=== PATIENT | female | born 1950 | race Caucasian/White ===

== ENCOUNTER 2019-05-06 20:33 | Emergency (ER) | payer MEDICARE ==
--- OUTSIDE RECORDS SUMMARY | 2019-05-06 20:39 | XMS REPORT | Continuity of Care Document ---
:1950 External Reference #:[id number] Author Name HORACIO Campbell Address [address] [place] [address], [address] [place] [address] Care Team Providers Name Role Phone Kalyn Partida M.D. - Obstetrics & Care Team Information Automatic Fabric Cutter [phone] Gynecology Problems Active Problems Provider Date Posterior rhinorrhea HORACIO Campbell Onset: 11/02/2018 Cough HORACIO Campbell Onset: 11/02/2018 Social History Type Date Description Comments Sex Unknown ETOH Use Rarely consumes alcohol Tobacco Use Start: Unknown Patient is a current smoker, smokes every 1/2 ppd day Smoking Status Reviewed: 04/25/19 Patient is a current smoker, smokes every 1/2 ppd day Allergies, Adverse Reactions, Alerts Description No Known Drug Allergies Medications Active Medications SIG Qnty Indications Ordering Provider Date Myrbetriq 1 by mouth every 30tabs N32.81 Lesley Montes, 04/25/2019 25mg Tablets ER day PIPING DESIGN SPECIALIST 24HR Fluticasone Propionate 2 sprays in each 16gm Taylor De La Torre, 07/16/2018 nostril every PIPING DESIGN SPECIALIST 50mcg/Act Suspension day Meloxicam 1 by mouth every 90tabs M54.2 Lesley Montes, 04/20/2017 15mg Tablets day PIPING DESIGN SPECIALIST Atorvastatin Calcium take 1 tablet by 90tabs E78.2 Paddy Alavrado, 2016 20mg mouth every day M.D. Tablets Ventolin HFA 2 puffs four 16gm Paddy Alvarado, 108(90Base) times a day as M.D. mcg/Act Aerosol needed Loratadine 1 by mouth every Unknown 10mg Tablets day History Medications Azithromycin 2 tabs by mouth on 6tabs R05 Paddy Gagnonlila, 12/17/2018 - 250mg day 1, then 1 tab M.D. 04/24/2019 Tablets by mouth day on days 2-5 Hydromet 5ml by mouth every 473ml R05 Paddy Alvarado, 12/17/2018 - 5-1.5mg/5ML 4 hours as needed M.D. 04/24/2019 Syrup for cough Hydromet 5 milliliters every 120units Lesley 11/02/2018 - 5-1.5mg/5ML 4 hours as needed HORACIO Montes 12/17/2018 Syrup cough #[id number] Benzonatate take 1 by mouth 30caps R05 Lesley 11/02/2018 - 200mg three times a day HORACIO Montes 11/12/2018 Capsules as needed for cough. Immunizations CPT Code Status Date Vaccine Lot # [id number] Given 05/22/2018 Prevnar 13, [facility] 5567-3490-09. 0[place]5 [place] [id number] Given 04/20/2018 Fluzone, High Dose 0.5mL 05302 Given 05/01/2017 Afluria, 0.5mL Flu Vaccine Vital Signs Date Vital Result Comment 04/25/2019 9:40am Weight 184.12 lb Height 66 inches 5'6" BP Systolic 140 mmHg BP Diastolic 80 mmHg Heart Rate 82 /min BMI (Body Mass Index) 29.7 kg/m2 Left Visual Acuity Distance 20/25 w/glasses Right Visual Acuity Distance 20/30 w/glasses Both Visual Acuity Distance 20/25 w/glasses 12/17/2018 3:59pm Weight 193.00 lb Height 66 inches 5'6" BP Systolic 126 mmHg BP Diastolic 80 mmHg Body Temperature 98.0 F Heart Rate 77 /min O2 % BldC Oximetry 97 % BMI (Body Mass Index) 31.1 kg/m2 Results Test Date Facility Test Result H/L Range Note Thy (TSH And Free 04/25/2019 [facility] TSH <pending> T4) [address] [place] [address] [phone] Free T4 <pending> Procedures Date Code Description Status 06/13/2015 394786679 Bone Mineral Density Test Completed Medical Devices Description No Information Available Encounters Type Date Location Provider Dx Diagnosis Office Visit 04/25/2019 Main Office Lesley Montes E78.2 Mixed hyperlipidemia 9:40a PIPING DESIGN SPECIALIST M54.2 Cervicalgia Z13.228 Encounter for screening for other metabolic disorders N32.81 Overactive bladder Z71.3 Dietary counseling and surveillance Office Visit 12/17/2018 4:15p Main Office Paddy Alvarado M.D. R05 Cough Z71.3 Dietary counseling and surveillance Office Visit 11/02/2018 2:00p Main Office Lesley Montes R09.[address] [facility] R05 Cough Assessments Date Code Description Provider 04/25/2019 E78.2 Mixed hyperlipidemia MANAD CampbellP 04/25/2019 M54.2 Cervicalgia Lesley Montes, PIPING DESIGN SPECIALIST 04/25/2019 Z13.228 Encounter for screening for other metabolic HORACIO Campbell disorders 04/25/2019 N32.81 Overactive bladder MANDA CampbellP 04/25/2019 Z71.3 Dietary counseling and surveillance HORACIO Campbell 04/25/2019 E78.2 Mixed hyperlipidemia Laboratory 04/25/2019 Z13.228 Encounter for screening for other metabolic Laboratory disorders 12/17/2018 R05 Serene Alvarado M.D. 12/17/2018 Z71.3 Dietary counseling and surveillance Paddy Alvarado M.D. 11/02/2018 R09.82 Postnasal drip MANDA CampbellP 11/02/2018 R05 Cough HORACIO Campbell Plan of Treatment Future Appointment(s):10/25/2019 8:40 am - HORACIO Campbell at Main Lppoaz6104/25/2019 - ANGELES Campbell78.2 Mixed trhvtbnjwmcbblJ50.2 LmoisuynlvyC28.228 Encounter for screening for other metabolic tigxhzpidM12.81 Overactive bladderNew Medication:Myrbetriq 25 mg - 1 by mouth every dayZ71.3 Dietary counseling and surveillanceReferral:Kalyn Partida M.D., account retention representative/Phys/ Bryanna Ventura M.D., Gastroenterology Functional Status Description No Information Available Mental Status Description No Information Available Referrals Refer to Reason for Referral Status Appt Date Kalyn Partida M.D. Scheduled 06/17/2019 [facility] [address] [place] [address] [address] [place] [address] [phone] Bryanna Baltazar M.D. Scheduled 08/01/[address] [place] [address] [address] [place] [address] [phone]
--- OUTSIDE RECORDS SUMMARY | 2019-05-06 20:39 | XMS REPORT | Continuity of Care Document ---
:1950 External Reference #:[id number] Author Name HORACIO Campbell Address [address] [place] [address], [address] [place] [address] Care Team Providers Name Role Phone Kalyn Partida M.D. - Obstetrics & Care Team Information Job Foreman [phone] Gynecology Problems Active Problems Provider Date Posterior [...] Lesley Montes, 04/25/2019 25mg Tablets ER day NAPPER GRINDER 24HR Fluticasone Propionate 2 sprays in each 16gm Taylor De La Torre, 07/16/2018 nostril every NAPPER GRINDER 50mcg/Act Suspension day Meloxicam 1 by mouth every 90tabs M54.2 Lesley Montes, 04/20/2017 15mg Tablets day NAPPER GRINDER Atorvastatin Calcium take 1 tablet by 90tabs E78.2 Paddy Alvarado, 2016 20mg mouth every day M.D. Tablets [...] as needed HORACIO Montes 12/17/2018 Syrup cough #[id number] Benzonatate take 1 by mouth 30caps R05 Lesley 11/02/2018 - 200mg three times a day HORACIO Montes 11/12/2018 Capsules as needed for cough. Immunizations CPT Code Status Date Vaccine Lot # [id number] Given 05/22/2018 Prevnar 13, [facility] 9648-3678-26. 0[place] [id number] Given 04/20/2018 Fluzone, High Dose 0.5mL 21344 Given 05/01/2017 Afluria, 0.5mL Flu Vaccine Vital [...] 04/25/2019 [facility] TSH <pending> T4) [address] [place] [address] [phone] Free T4 <pending> Procedures Date Code Description Status 06/13/2015 [id number] Bone Mineral Density Test Completed Medical Devices Description No Information Available Encounters Type Date Location Provider Dx Diagnosis Office Visit 04/25/2019 Main Office Lesley Montes E78.2 Mixed hyperlipidemia 9:40a NAPPER GRINDER M54.2 Cervicalgia Z13.228 Encounter for screening for other metabolic disorders N32.81 Overactive bladder Z71.3 Dietary counseling and surveillance Office Visit 12/17/2018 4:15p Main Office Paddy Alvarado M.D. R05 Cough Z71.3 Dietary counseling and surveillance Office Visit 11/02/2018 2:00p Main Office Lesley Montes R09.82 Postnasal drip [facility] R05 Cough Assessments Date Code Description Provider 04/25/2019 E78.2 Mixed hyperlipidemia MANDA CampbellP 04/25/2019 M54.2 Cervicalgia Lesley Montes, NAPPER GRINDER 04/25/2019 Z13.228 Encounter for screening for other [...] 8:40 am - HORACIO Campbell at Main Odyekq9304/25/2019 - ANGELES Campbell78.2 Mixed gwkvwlxmlgmpbcQ97.2 LtjtuoxqepmB59.228 Encounter for screening for other metabolic kwurbxxpsJ41.81 Overactive bladderNew Medication:Myrbetriq 25 mg - 1 by mouth every dayZ71.3 Dietary counseling and surveillanceReferral:Kalyn Partida M.D., hand glass cutter/Phys/ Bryanna Ventura M.D., Gastroenterology Functional Status Description No Information Available Mental Status Description No Information Available Referrals Refer to Reason for Referral Status Appt Date Kalyn Partida M.D. Scheduled 06/17/2019 [facility] [address] [place] [address] [address] [place] [address] [phone] Bryanna Baltazar M.D. Scheduled 08/01/[address] [place] [address] [address] [place] [address] [phone]
--- NOTE | 2019-05-06 20:50 | UC ---
Abdominal Pain Female HPI - HPI Summary HPI Summary: Patient is a [age] female presents to urgent care with her . Patient states around 5:00 she developed vomiting. Patient states she had 3-4 episodes of nonbilious, nonbloody vomiting. Patient states she also at the same time developed right lower quadrant pain. Patient had difficulty describing the pain was states it goes into her back. Patient without any paresthesias or weakness of her extremities. Patient's since she's been urgent care has had 3 episodes of bowel movement. All have been formed. No blood no blood. Patient has any dysuria or hematuria. Patient denies any fever state she feels cold and is very thirsty. Patient did take some Pepto-Bismol that she kept down. Patient has never had anything like this before. Patient without any history of abdominal surgeries. No sick contact. medications reviewed - History of Current Complaint Stated Complaint: ABDOMINAL PAIN, AND VOMITING Time Seen by Provider: 05/06/19 20:48 Hx Obtained From: Patient ?: No Onset/Duration: Sudden Onset Timing: Constant Severity Currently: Moderate Allergies/Adverse Reactions: Allergies Allergy/AdvReac Type Severity Reaction Status Date / Time No Known Allergies Allergy Verified 05/06/19 20:52 Home Medications: Home Medications Atorvastatin* [Lipitor*] 20 mg PO 1700 05/06/19 [History Confirmed 05/06/19] PMH/Surg Hx/FS Hx/Imm Hx Previously Healthy: Yes - Surgical History Surgical History: None - Family History Known Family History: Positive: Non-Contributory - Social History Occupation: Retired Lives: With Family Review of Systems All Other Systems Reviewed And Are Negative: Yes Constitutional: Positive: Chills Skin: Positive: Negative Eyes: Positive: Negative ENT: Positive: Negative Respiratory: Positive: Negative Gastrointestinal: Positive: Abdominal Pain, Vomiting, Nausea, Other - frequent, formed BM Motor: Positive: Negative Neurovascular: Positive: Negative Is Patient Immunocompromised?: No Physical Exam - Summary Physical Exam Summary: Vital Signs Reviewed: Yes A+Ox3, appear uncomfortable, pallor Eyes: Conjunctiva Clear, ROMAN. EOM intact and full ENT: Hearing grossly normal TM x 2 clear, mmoist, uvula midline, no exudate, no erythema Neck: Positive: Supple Respiratory: Positive: No respiratory distress, No accessory muscle use + CTA throughout no w/r Cardiovascular: RRR nl s1, s2 no m/r CBT <2 sec abd soft + BS nt/nd no guarding, no distension, not reproducible Musculoskeletal Exam: HARDEN x 4 without difficulty Strength Intact, ROM Intact Neurological: Positive: Alert, + sensation throughout Psychological: Positive: Normal Response To examiner Skin: Positive: no rash, no ecchymosis, pallor Triage Information Reviewed: Yes Abd Pain Female Course/Dx - Course Course Of Treatment: Patient presents to urgent care reporting progression of nausea, vomiting and abdominal pain since that o'clock today. Patient has had 3-4 episodes of nonbilious, nonbloody emesis. Patient states she has abdominal pain going into her back. Patient without history of similar. Patient denies feeling lightheaded. No chest pain or shortness of breath. Patient denies sick contacts. No fevers. Patient states she does feel chilled. Patient has had 4 formed bowel movement since she's been urgent care. On exam vital signs are stable. Patient fell appearing. Patient was comfortable. Patient's mucous members are pasty. Abdominal pain is not reproducible to exam. Discussed with patient and her concerned about her current condition. In agreement to go the hospital for further evaluation. The medical by ambulance. We'll place an IV. We'll give Zofran and morphine as well as a liter fluid. Contact thinks her transfer. I did speak to ERWIN Leiva and emergency department his were patient's complete differential which includes but is not limited to aortic dissection or aneurysm. Pt's BP mildly elevated - related to presentation - Differential Dx/Diagnosis Provider Diagnosis: Abdominal pain, Vomiting Discharge ED - Sign-Out/Discharge Documenting (check all that apply): Patient Departure All imaging exams completed and their final reports reviewed: No Studies - Discharge Plan Condition: Fair Disposition: TRANS HIGHER LVL OF CARE FAC Referrals: Paddy Guo MD [Primary Care Provider] - - Billing Disposition and Condition Condition: FAIR Disposition: Trans Higher Lvl of Care Fac
[2019-05-06] MEDS ORDERED: NS 0.9% 1000 ML** 1,000 ML IV ONE (20:59)
[2019-05-06] MEDS ORDERED: Morphine 10 MG/ML VIAL (1 ml) IV ONE (21:00)
[2019-05-06] MEDS ORDERED: Ondansetron INJ* 2 MG/ML VIAL IV ONE (21:00)
[2019-05-06 21:43] VITALS: BP 126/52
== END 2019-05-06 21:25 | disposition short-term general hospital (02) ==
LOC: UCEAST 20:33
DX: R11.2 Nausea with vomiting, unspecified (principal); R10.9 Unspecified abdominal pain
CPT/HCPCS: 99203; G0463; J2270; J2405

== ENCOUNTER 2019-05-06 21:43 | Emergency (ER) | payer MEDICARE ==
[2019-05-06] MEDS ORDERED: Morphine 4 MG/ML VIAL (1 ml) 4 MG/ML VIAL IV ONE (22:26)
[2019-05-06 22:41] LABS: ABS Lymphocytes 0.3 10^3/ul (1.0-4.8); ABS Neutrophils 1.4 10^3/ul (1.5-7.7); Eosinophil % 0.5 %; Hematocrit 42 % (35-47); Hemoglobin 14.3 g/dL (12.0-16.0); Lymphocyte % 15.2 %; Mean Corpuscular HGB Conc 34 g/dL (31-36); Mean Corpuscular Hemoglobin 28 pg (27-31); Mean Corpuscular Volume 81 fL (80-97); Mean Platelet Volume 8.4 fL (7.4-10.4); Nucleated Red Blood Cells % 0.3; Platelet Count 124 10^3/uL (150-450); Red Blood Count 5.17 10^6 /uL (3.70-4.87); Red Cell Distribution Width 15 % (10-15); White Blood Count 1.6 10^3/uL (3.5-10.8)
--- NOTE | 2019-05-06 22:43 | ED ---
GI/ HPI - HPI Summary HPI Summary: 68-year-old female presents with acute onset abdominal pain that radiates to the back for the past couple hours. She said nausea vomiting. Did have a couple episodes of loose stool while at . She's never had this pain before. No previous abdominal surgeries. No fevers. No urinary symptoms. Denies any flank pain. No chest pain or shortness breath. Has a history of high blood pressure. States pain was getting better with morphine given by [facility] care facility but now is worse. Does not change with movement. No tingling to her legs. - History of Current Complaint Chief Complaint: EDAbdPain Time Seen by Provider: 05/06/19 22:21 Stated Complaint: TRANSFER FROM [facility]; ABDOMINAL PAIN Pain Intensity: 7 - Allergy/Home Medications Allergies/Adverse Reactions: Allergies Allergy/AdvReac Type Severity Reaction Status Date / Time No Known Allergies Allergy Verified 05/06/19 20:52 Home Medications: Home Medications Loratadine 10 mg PO DAILY 05/06/19 [History Confirmed 05/06/19] Meloxicam [Mobic] 15 mg PO BID PRN 05/06/19 [History Confirmed 05/06/19] PMH/Surg Hx/FS Hx/Imm Hx Endocrine/Hematology History: Denies: Hx Anticoagulant Therapy Cardiovascular History: Reports: Hx Hypertension Musculoskeletal History: Denies: Hx Scoliosis Neurological History: Denies: Hx Headaches, Other Neuro Impairments/Disorders Infectious Disease History: No Infectious Disease History: Denies: Traveled Outside the [place] in Last 30 Days - Family History Known Family History: Positive: Non-Contributory - Social History Alcohol Use: Rare Substance Use Type: Reports: None Smoking Status (MU): Heavy Every Day Tobacco Smoker Review of Systems Negative: Fever Negative: Chest Pain Negative: Shortness Of Breath Positive: Abdominal Pain, Vomiting, Diarrhea, Nausea All Other Systems Reviewed And Are Negative: Yes Physical Exam Triage Information Reviewed: Yes Vital Signs On Initial Exam: Initial Vitals Pulse BP Pulse Ox 82 139/61 97 05/06/19 21:47 05/06/19 21:47 05/06/19 21:47 Vital Signs Reviewed: Yes Appearance: Positive: Well-Appearing Skin: Positive: Warm, Dry Head/Face: Positive: Normal Head/Face Inspection Eyes: Positive: Normal, EOMI, ROMAN, Conjunctiva Clear ENT: Positive: Normal ENT inspection, Pharynx normal, TMs normal Respiratory/Lung Sounds: Positive: Clear to Auscultation, Breath Sounds Present Cardiovascular: Positive: Normal, RRR Abdomen Description: Positive: Nontender, Soft, Other: - tenderness lower back. Negative: CVA Tenderness (R), CVA Tenderness (L) Bowel Sounds: Positive: Present Musculoskeletal: Positive: Normal Neurological: Positive: Normal Psychiatric: Positive: Normal Procedures - Sedation Patient Received Moderate/Deep Sedation with Procedure: No Diagnostics - Vital Signs Vital Signs Temp Pulse Resp BP Pulse Ox 05/06/19 22:30 20 05/06/19 22:00 74 94 05/06/19 21:48 98.3 F 81 16 139/61 98 05/06/19 21:47 82 139/61 97 - Laboratory Lab Results: Lab Results 05/06/19 Range/Units 22:33 WBC 1.6 L (3.5-10.8) 10^3/uL RBC 5.17 H (3.70-4.87) 10^6 /uL Hgb 14.3 (12.0-16.0) g/dL Hct 42 (35-47) % MCV 81 (80-97) fL MCH 28 (27-31) pg MCHC 34 (31-36) g/dL RDW 15 (10-15) % Plt Count 124 L (150-450) 10^3/uL MPV 8.4 (7.4-10.4) fL Neut % (Auto) 83.5 % Lymph % (Auto) 15.2 % Butler % (Auto) 0.5 % Eos % (Auto) 0.5 % Baso % (Auto) 0.3 % Absolute Neuts (auto) 1.4 L (1.5-7.7) 10^3/ul Absolute Lymphs (auto) 0.3 L (1.0-4.8) 10^3/ul Absolute Monos (auto) 0.0 (0-0.8) 10^3/ul Absolute Eos (auto) 0.0 (0-0.6) 10^3/ul Absolute Basos (auto) 0.0 (0-0.2) 10^3/ul Absolute Nucleated RBC 0.0 10^3/ul Nucleated RBC % 0.3 Result Diagrams: 05/06/19 22:33 05/06/19 22:33 Lab Statement: Any lab studies that have been ordered have been reviewed, and results considered in the medical decision making process. - CT abd CT Interpretation Completed By: Radiologist Summary of CT Findings: IMPRESSION: 1. There is a 6 mm calculus at the right ureterovesical junction with mild to moderate right obstructive uropathy. 2. No aortic dissection. - EKG No standard instances Cardiac Rate: NL EKG Rhythm: Sinus Rhythm Summary of EKG Findings: sinus rhythm Re-Evaluation - Re-Evaluation First Eval Re-Evaluation Time: 00:41 Change: Improved Comment: feeling better Second Eval Re-Evaluation Time: 01:00 Comment: pain is returning. will give liter of fluid and toradol Third Eval Re-Evaluation Time: 01:57 Change: Improved Comment: feeling better GIGU Course/Dx - Course Course Of Treatment: 68-year-old female presents with acute onset abdominal pain that radiates to the back for the past couple hours. She said nausea vomiting. Did have a couple episodes of loose stool while at [facility]. She's never had this pain before. No previous abdominal surgeries. No fevers. No urinary symptoms. Denies any flank pain. No chest pain or shortness breath. Has a history of high blood pressure. States pain was getting better with morphine given by [facility] care facility but now is worse. Does not change with movement. No tingling to her legs. On exam nontender abd but does have lower back tenderness. The patient appears acutely uncomfortable we'll get a CTA. wbc 1.5. crp normal. troponin zero. urine shows potential uti. CT shows ureteral stone. gave dose of rocephin for potential uti. placed on flomax. will have follow up with urology. patient understand and agrees with plan - Diagnoses Differential Diagnoses - Female: Pyelonephritis, Urinary Tract Infection, Ureteral Calculi Provider Diagnoses: Ureteral stone, UTI (urinary tract infection) Discharge ED - Sign-Out/Discharge Documenting (check all that apply): Patient Departure - Discharge Plan Condition: Good Disposition: HOME Prescriptions: Amoxicillin/Clavulanate TAB* [Augmentin TAB 500 mg*] 500 mg PO BID #9 tab Ondansetron ODT TAB* [Zofran 4 MG Odt TAB*] 4 mg PO Q6H PRN #16 tab.odt PRN Reason: Nausea oxyCODONE/Acetamin 5/325 MG* [Percocet 5/325 TAB*] 1 tab PO Q4H PRN #16 tab MDD 6 PRN Reason: Pain - Severe Tamsulosin CAP* [Flomax CAP*] 0.4 mg PO DAILY #7 cap Patient Education Materials: Ureteral Stones (ED) Referrals: Paddy Guo MD [Primary Care Provider] - Josh Reynolds MD [Medical Doctor] - Additional Instructions: Take ibuprofen every 6 hours and percocet as needed every 4-6 hours Take Zofran every 6 hours for nausea as needed Take Flomax daily starting tomorrow, first dose given in ED until stone expelled , make sure stand up slowly take augmentin twice a day for 5 days for uti Follow up with urology, call officefor appointment Strain urine until collect stone Return to ED if unable to manage pain at home, develop fever, or any new or worsening symptoms - Billing Disposition and Condition Condition: GOOD Disposition: Home
[2019-05-06 22:57] LABS: Urine Appearance Cloudy; Urine Bacteria 1+ (Absent); Urine Bilirubin Negative (Negative); Urine Blood 1+ (Negative); Urine Color Yellow; Urine Glucose Negative (Negative); Urine Ketones Trace (Negative); Urine Nitrite Positive (Negative); Urine Protein Negative (Negative); Urine Red Blood Cell 2+(6-10/hpf) (Absent); Urine Squamous Epithelial Cell Present (Absent); Urine Urobilinogen Negative (Negative); Urine White Blood Cell 2+(11-20/hpf) (Absent)
[2019-05-06 22:58] LABS: Albumin/Globulin Ratio 1.6 (1-3); BUN/Creatinine Ratio 15.3 (8-20); C Reactive Protein 1.51 mg/L (<8.01); Calcium 9.3 mg/dL (8.6-10.3); EGFR African American 46.7 (>60); EGFR Non-African American 38.6 (>60); Globulin 2.5 g/dL (2-4); Magnesium 1.5 mg/dL (1.9-2.7); Potassium 3.9 mmol/L (3.5-5.0); Total Bilirubin 1.4 mg/dL (0.2-1.0); Total Protein 6.5 g/dL (6.4-8.9)
[2019-05-06 22:59] LABS: Troponin I 0.02 ng/mL (<0.04)
[2019-05-06] MEDS ORDERED: Iodixanol* (CONTRAST) 320 MG/ML 100 ML SDV IV ONE (23:03)
[2019-05-06] MEDS ORDERED: cefTRIAXone(*) 1 GM in NS 0.9% 50 ML* 50 ML IVPB ONE (23:32)
[2019-05-07] MEDS ORDERED: Ketorolac INJ* 30 MG/ML 1 ML VIAL IV PUSH ONE (00:10)
[2019-05-07] MEDS ORDERED: Tamsulosin CAP* 0.4 MG PO ONE (00:15)
[2019-05-07] MEDS ORDERED: HYDROmorphone INJ* 0.5 MG/0.5 ML SYRINGE IV SLOW PU ONE (00:15)
[2019-05-07] MEDS ORDERED: NS 0.9% 1000 ML** 1,000 ML IV ONE (00:46)
[2019-05-07] MEDS ORDERED: O ndansetron ODT 4MG 5TAB PRPK 4 MG PAK PO ONE (01:56)
[2019-05-07 02:23] VITALS: BP 99/49
== END 2019-05-07 02:22 | disposition home or self-care (01) ==
LOC: ED 21:43
DX: N13.0 Hydronephrosis with ureteropelvic junction obstruction (principal); N39.0 Urinary tract infection, site not specified; R59.0 Localized enlarged lymph nodes; R11.2 Nausea with vomiting, unspecified; R19.7 Diarrhea, unspecified; I10 Essential (primary) hypertension; F17.200 Nicotine dependence, unspecified, uncomplicated
CPT/HCPCS: 36415; 71275; 74174; 80053; 81003; 81015; 83605; 83690; 83735; 84484; 85025; 86140; 87077; 87086; 87186; 93005; 96361; 96365; 96375; 99284; A9270-GY; J0696; J1170; J1885; J2270; Q9967